=== PATIENT | male | born 1980 | race Caucasian/White ===

== ENCOUNTER 2025-05-17 10:03 | Emergency (ER) | payer OTHER, SELFPAY ==
[2025-05-17] VITALS (10 sets, daily range): BP systolic 138–158; BP diastolic 84–108; PULSE 60–73; RESP 12–36; O2SAT 97–100; BMI 25.8
--- NOTE | 2025-05-17 10:05 | DI.RAD.S_ITS ---
PROCEDURE: XR CHEST 1V INDICATIONS: Chest Pain TECHNIQUE: One view of the chest was acquired. COMPARISON: None. FINDINGS: Surgical changes and devices: None. Lungs and pleura: Lungs are clear. No pleural effusions or pneumothorax. Mediastinum: Mediastinal contours appear normal. Heart size is normal. Bones and chest wall: No suspicious bony lesions. Overlying soft tissues appear unremarkable. IMPRESSION: No acute cardiopulmonary abnormality is seen. Dictated by: Nicola Beckman M.D. on 05/17/2025 at 10:53 Approved by: Nicola Beckman M.D. on 05/17/2025 at 10:53
--- NOTE | 2025-05-17 10:10 | EKG_ITS ---
[address] [address] Test Date: 2025-05-17 Pat Name: Brad Heredia Department: [facility] Room: Gender: Male [employer]works Display Specialist: TONI : 1980 Requested By: Order Number: [id number] Reading MD: Kane Logan Measurements Intervals [place] Rate: 65 P: 52 MO: 154 QRS: 4 QRSD: 90 T: 31 QT: 390 QTc: 405 Interpretive Statements Normal sinus rhythm Electronically Signed On 05-31-2025 8:09:57 PDT by Kane Logan
[2025-05-17 10:18] LABS: Add Manual Diff / Slide Review NO; Hematocrit 38.3 % (41-53); Hemoglobin 13.4 g/dL (13.5-17.5); Lymphocytes Absolute Auto 700 /uL (1100-4500); Mean Corpuscular HGB Conc 35.0 % (30-36); Mean Corpuscular Hemoglobin 28.8 PG (26-34); Mean Corpuscular Volume 82.2 fL (80-100); Platelet Count 172 X10^3/uL (150-400)
[2025-05-17 10:24] LABS: INR 1.2 (0.9-1.3); Prothrombin Time 13.2 SECONDS (9.4-12.5)
--- NOTE | 2025-05-17 10:24 | ED_ITS ---
HPI - General Adult General Chief complaint: Syncope Stated complaint: Syncope Time Seen by Provider: 05/17/25 10:23 Source: patient and EMS Mode of arrival: EMS History of Present Illness HPI narrative: Brad, a 44-year-old male, reports passing out at work today. He states that he has been feeling unwell since Tuesday, experiencing symptoms of a head cold including nasal congestion and sneezing. He also mentions having a dry cough, slight nausea, and a mild headache. The patient denies any fever, shortness of breath, chest pain, abdominal pain, vomiting, or diarrhea. He reports no previous episodes of passing out. Brad mentions that he has seen a database analyst in the past but is not currently on any medication. He took two home COVID tests yesterday, both of which were negative. On the day of the incident, he skipped breakfast and felt lightheaded while standing at work. He experienced a cold sweat just before losing consciousness. The patient denies any history of asthma, smoking, or recreational drug use. He also denies regular alcohol consumption. Related Data Previous Rx's ?Medication ?Instructions ?Recorded amoxicillin 875 mg-potassium 875 mg (0.88 x 875-125 mg ) PO BID 10/30/17 clavulanate 125 mg tablet #20 tabs (Augmentin) Allergies Allergy/AdvReac Type Severity Reaction Status Date / Time No Known Allergies Allergy Uncoded 05/17/25 10:05 Patient History Social History Smoking Status: Former smoker Smoking Status: Former smoker Exam Narrative Exam Narrative: VS as noted above Focused physical exam as follows: General: Well developed, well nourished, no acute distress HEENT: pink palpebral conjunctiva, anicteric sclera, JEANNE, dry mucous membranes, no JVD, no cervical lymphadenopathy Lungs: no respiratory distress, clear to auscultation without wheezes or crackles; equal breath sounds Heart: normal rate, regular rhythm, no appreciable murmurs Abdomen: soft, nontender, no rebound or rigidity Musculoskeletal: no gross deformities with full ROM in all extremities, no pedal edema Skin: pink, warm; no rashes Neuro:? AAOx3, GCS 15, nonfocal exam Psyche: no SI/HI, normal affect Initial Vital Signs Initial Vital Signs: Vital Signs Pulse Rate 68 05/17/25 10:05 Respiratory Rate 12 05/17/25 10:05 Blood Pressure 143/84 H 05/17/25 10:05 Pulse Oximetry 99 05/17/25 10:05 Oxygen Delivery Method Room Air 05/17/25 10:05 Course Orders Ordered: Discontinued Medications Aspirin (Aspirin 81 Mg Chew Tab) 324 mg PO NOW ONE Stop: 05/17/25 10:06 Vital Signs Vital signs: Vital Signs - 8 hr 05/17/25 10:05 Pulse Rate 68 Respiratory Rate 12 Blood Pressure 143/84 H Pulse Oximetry 99 Oxygen Delivery Method Room Air Medical Decision Making Lab Data 05/17/25 10:00 05/17/25 10:00 Labs: Lab Results 05/17/25 05/17/25 05/17/25 Range/Units 10:00 11:10 11:15 WBC 4.5 (4.5-11.0) X10^3/uL RBC 4.66 (4.5-5.9) X10^6/uL Hgb 13.4 L (13.5-17.5) g/dL Hct 38.3 L (41-53) % MCV 82.2 (80-100) fL MCH 28.8 (26-34) PG MCHC 35.0 (30-36) % RDW 12.8 (11.6-14.8) % Plt Count 172 (150-400) X10^3/uL Neut % (Auto) 68.5 (50-75) % Lymph % (Auto) 16.4 L (25-40) % Clinton % (Auto) 14.1 H (3-14) % Eos % (Auto) 0.5 L (2-4) % Baso % (Auto) 0.5 (0-2) % Neut # (Auto) 3100 (4158-8974) /uL Lymph # (Auto) 700 L (9409-8630) /uL Clinton # (Auto) 600 (0-900) /uL Eos # (Auto) 0 (0-450) /uL Baso # (Auto) 0 (0-100) /uL PT 13.2 H (9.4-12.5) SECONDS INR 1.2 (0.9-1.3) APTT 28 (25.1-36.5) SECONDS Sodium 135 L (137-145) mmol/L Potassium 3.7 (3.4-5.1) mmol/L Chloride 103 (98-107) mmol/L Carbon Dioxide 25 (22-32) mmol/L BUN 12 (9-20) mg/dL Creatinine 0.88 (0.66-1.25) mg/dL Estimated GFR > 60 (>60) mL/min BUN/Creatinine Ratio 13.6 (6-22) Glucose 129 H (70-99) mg/dL Calcium 8.5 (8.4-10.2) mg/dL Magnesium 2.1 (1.6-2.3) mg/dL Total Bilirubin 0.4 (0.2-1.3) mg/dL AST 20 (17-59) IU/L ALT 20 (<50) IU/L Alkaline Phosphatase 55 (38-126) U/L Total Creatine Kinase 40 L (55-170) U/L Troponin I < 0.012 (0.01-0.034) ng/mL NT-Pro-B Natriuret Pep < 20 (<125) pg/mL Total Protein 7.1 (6.3-8.2) g/dL Albumin 4.1 (3.5-5.0) g/dL Globulin 3.0 (1.7-4.1) g/dL Albumin/Globulin Ratio 1.4 (1.0-2.8) Lipase 41 (23-300) U/L U Opiates 300ng/mL cut Negative (Negative) Ur Oxycodone Screen Negative (Negative) Urine Methadone Screen Negative (Negative) Ur Barbiturates Screen Negative (Negative) U Tricyclic Antidepress Negative (Negative) Ur Phencyclidine Scrn Negative (Negative) Ur Amphetamines Screen Negative (Negative) U Methamphetamines Scrn Negative (Negative) Ur MDMA Scrn (Ecstasy) Negative (Negative) U Benzodiazepines Scrn Negative (Negative) Urine Cocaine Screen Negative (Negative) U Marijuana (THC) Screen Negative (Negative) Urine pH Normal (Normal) Urine Specific [place] Normal (Normal) Ethyl Alcohol < 10 (<10) mg/dL Ur Creatinine Normal (Normal) Chlamy pneumoniae PCR Not detected (Not Detect) Adenovirus (PCR) Not detected (Not Detect) B. pertussis DNA (PCR) Not detected (Not Detect) B.parapertussis DNA PCR Not detected (Not Detecte) Coronavirus OC43 (PCR) Not detected (Not Detect) Coronavirus HKU1 (PCR) Not detected (Not Detect) Coronavirus 229E (PCR) Not detected (Not Detect) SARS-CoV-2 (PCR) Not detected (Not Detecte) Coronavirus NL63 (PCR) Not detected (Not Detect) Human Metapneumovir PCR Not detected (Not Detect) Influenza Type A (PCR) Not detected (Not Detect) Influenza Type B (PCR) Not detected (Not Detect) M. pneumoniae (PCR) Not detected (Not Detect) Parainfluenza 1 (PCR) Not detected (Not Detect) Parainfluenza 2 (PCR) Not detected (Not Detect) Parainfluenza 3 (PCR) Detected H (Not Detect) Parainfluenza 4 (PCR) Not detected (Not Detect) RSV (PCR) Not detected (Not Detect) Entero/Rhino (PCR) Not detected (Not Detect) ECG Data Interpretation: 1012 - NSR @ 65; no STTW changes; QTc 405 MDM Narrative Medical decision making narrative: HPI, PMHx, PSHx, Medication list, Allergies, ROS and Focused exam were reviewed above.? Differential diagnosis as noted above.? Social determinants affecting care considered (as listed).? All of these were taken into consideration warranting above listed work up.? Consultations as deemed necessary were documented above (if listed). Labs (if ordered and noted above) were independently reviewed by me. Imaging studies (if ordered and noted above) were independently reviewed by me EKG (if noted above) was independently reviewed by me External documents (if reviewed) are documented above Initial VS noted above.? PMHx, PSHx, Medication list, social history reviewed as noted above. Differential diagnosis considered include (but not limited to) the following: dehydration, symptomatic anemia, cardiac dysrhythmia, seizure, ACS, hypo/hyperglycemia, hypo/hyperthyroidism, electrolyte imbalance, liver or kidney failure, viral resp illness, pneumonia, adverse effect of illicit drug/ETOH Pt interviewed and examined. Bedside EKG showed no ST elevation or ectopy. Already receiving IVF bolus en route and continued in the ER. Work up initiated. Labs reviewed - unremarkable other than dehydration and parainfluenza virus infection. Orthostatic VS checked - stable. Pt feeling better. Discussed work up and plan of care. Stable for discharge with return precautions. Discharge Plan Departure Patient Disposition: Home Clinical Impression: Parainfluenza infection, Dehydration Syncope Qualifiers: Syncope type: unspecified Qualified Code(s): R55 - Syncope and collapse Instructions: DI for Syncope in Adults (Fainting) Activity Restrictions/Additional Instructions: You have a parainfluenza virus infection likely causing your symptoms. You were noted to be dehydrated and likely passed out due to this. No antibioitics are indicated at this time. Drink plenty of fluids. Eat at regular intervals. Take extra time and caution with ambulation. Return to the ER if with worsening symptoms. Prescriptions: No Action amoxicillin-pot clavulanate [Augmentin] 875 MG/125 MG tablet 875 mg PO BID Qty: 20 0RF Referrals: ProviderTami [Primary Care Provider, Family Practice] Stand Alone Forms: Patient Portal/API
[2025-05-17 10:26] LABS: PTT Partial Thromboplastin Tim 28 SECONDS (25.1-36.5)
[2025-05-17 10:28] LABS: Alanine Aminotransferase 20 IU/L (<50); Albumin 4.1 g/dL (3.5-5.0); Albumin Globulin Ratio 1.4 (1.0-2.8); Alkaline Phosphatase 55 U/L (38-126); Blood Urea Nitrogen 12 mg/dL (9-20); Calcium 8.5 mg/dL (8.4-10.2); Carbon Dioxide 25 mmol/L (22-32); Chloride 103 mmol/L (98-107); Creatine Kinase 40 U/L (55-170); Estimated Glomerular Filt Rate > 60 mL/min (>60); Globulin 3.0 g/dL (1.7-4.1); Glucose 129 mg/dL (70-99); HEMOLYSIS < 15 (0-50); Lipase 41 U/L (23-300); Magnesium 2.1 mg/dL (1.6-2.3); Potassium 3.7 mmol/L (3.4-5.1); Sodium 135 mmol/L (137-145); Total Protein 7.1 g/dL (6.3-8.2)
[2025-05-17 10:40] LABS: NT-proBNP (BNP-Adult 18+) < 20 pg/mL (<125); Troponin I < 0.012 ng/mL (0.01-0.034)
[2025-05-17 10:48] LABS: Ethanol (ETOH) < 10 mg/dL (<10)
[2025-05-17 11:27] LABS: Ur Creatinine Normal (Normal); Ur Specific Gravity Normal (Normal); Urine MDMA Negative (Negative); Urine Methamphetamines Negative (Negative); Urine THC Negative (Negative); Urine Tricyclic Antidepressant Negative (Negative); Urine pH Normal (Normal)
[2025-05-17 12:13] LABS: Coronavirus NL 63 Not Detected (Not Detect); SARS- CoV-2 Not Detected (Not Detecte)
== END 2025-05-17 13:25 | disposition home or self-care (01) ==
PROVIDERS: Emergency Provider Emergency Medicine
DX: E86.0 Dehydration (principal); R55 Syncope and collapse; B34.8 Other viral infections of unspecified site
CPT/HCPCS: 36415; 71045; 80053; 80305; 80320; 82550; 83690; 83735; 83880; 84484; 85025; 85610; 85730; 87633; 93005; 99283; 99284